=== PATIENT | female | born 1995 | race Caucasian/White ===

== ENCOUNTER 2023-01-02 11:16 | Emergency (ER) | payer MEDICAID ==
[~2023-01-02] VITALS: Ht 167.6 cm; Wt 72.6 kg
[2023-01-02 11:21] VITALS: BP_SYST 134; PULSE 93; RESP 18; TEMP 98.3; O2SAT 98
[2023-01-02] MEDS ORDERED: NAPR-688 PO (12:09)
[2023-01-02 13:46] VITALS: BP_SYST 134; PULSE 93; RESP 18; TEMP 98.3; O2SAT 98
== END 2023-01-02 13:45 | disposition home or self-care (01) ==
LOC: SED 11:16
DX: S56.811A Strain of other muscles, fascia and tendons at forearm level, right arm, initial encounter (principal); Z79.899 Other long term (current) drug therapy; X50.0XXA Overexertion from strenuous movement or load, initial encounter; Y93.89 Activity, other specified; Y92.89 Other specified places as the place of occurrence of the external cause; Y99.8 Other external cause status
CPT/HCPCS: 73090; 99283